=== PATIENT | male | born 1975 | race Caucasian/White ===

== ENCOUNTER 2020-04-01 18:09 | Emergency (ER) | payer BC, SELFPAY ==
[2020-04-01 18:19] VITALS: BP 131/68; PULSE 89; RESP 21; TEMP 37.8; O2SAT 97; BMI 34.0
--- NOTE | 2020-04-01 18:24 | DI.RAD.S_ITS ---
PROCEDURE: XR SHOULDER RT MIN 2V INDICATIONS: RIGHT Shoulder pain after fall TECHNIQUE: 3 views of the shoulder were acquired. COMPARISON: None. FINDINGS: Bones: No acute fractures or dislocations. No suspicious bony lesions. Visualized ribs appear intact. Soft tissues: No suspicious soft tissue calcifications. IMPRESSION: No acute osseous abnormality. If the symptoms persist with conservative management, consider cross sectional imaging such as CT or MRI for further assessment. Dictated by: Lenard Ramos M.D. on 04/01/2020 at 18:44 Approved by: Lenard Ramos M.D. on 04/01/2020 at 18:45
[2020-04-01] MEDS: ACETAMINOPHEN 325 MG TABLET 650 MG PO (19:25)
[2020-04-01] MEDS: IBUPROFEN 400 MG TABLET 800 MG PO (19:25)
[2020-04-01 19:43] VITALS: BP 132/81; PULSE 87; RESP 12; O2SAT 98
--- NOTE | 2020-04-01 21:58 | ED.UPPEXIN ---
HPI - Extremity Injury (Upper) <NOLA JainP - Last Filed: 04/01/20 22:16> General Chief Complaint: Extremity Injury, Upper Stated Complaint: RIGHT SHOULDER PAIN FALL LAST NIGHT Time Seen by Provider: 04/01/20 18:43 Source: patient Mode of arrival: Ambulatory Limitations: no limitations History of Present Illness HPI narrative: This is a 44-year-old male, smoker, has history of hypertension, diabetes presents to ED with chief complain of right anterior shoulder pain your AC joint. Patient reports he accidentally slipped and fell on right shoulder and /head last night. Patient reports he had some alcohol drinks before fall. He is a visitor from [place] and is planning return to home on 04/12/20. Patient denies losing consciousness, neck pain, vision change, headache, vomiting, or other head injury concerns. Patient reports only issue is in my shoulder and points to right shoulder. Patient reports limited range of motion on right arm with abduction, forward flexion, adduction due to pain and rates his pain as 7/10. Patient denies taking any medications after the injury for pain. Patient reports intact sensation distally and is able to move his fingers. Patient dominant right hand. Patient reports last tetanus immunization last than 5 years during foot surgery. Related Data Allergies Allergy/AdvReac Type Severity Reaction Status Date / Time No Known Drug Allergies Allergy Verified 04/01/20 18:19 Review of Systems <LEOPOLDO Jain - Last Filed: 04/01/20 22:16> Review of Systems Narrative: General: Denies fever, chills, fatigue, malaise, sweats. HEENT: Denies sinus pain, ear pain, sore throat, difficulty swallowing, dizziness. Respiratory: Denies dyspnea, cough, wheezing, hemoptysis, sputum. Cardiovascular: Denies chest pain, palpitations, orthopnea, edema. Gastrointestinal: Denies nausea, vomiting, abdominal pain, diarrhea, constipation, melena. : Denies dysuria, frequency, incontinence, hematuria, urinary retention. Musculoskeletal: See HPI Skin: Reports abrasion on right-sided forehead. Neurologic: Denies weakness, headache, numbness, change in speech, confusion, seizures, incoordination. Psychiatric: No concerning psychosocial issues. 12-point review of systems is negative except for those stated above. Patient History <LEOPOLDO Jain - Last Filed: 04/01/20 22:16> Medical History Anxiety (Acute) Depression (Acute) Diabetes (Acute) Hypertension (Acute) Social History Smoking Status: Current every day smoker Smoking Status: Current every day smoker tobacco type: cigarettes alcohol intake frequency: a few times a week Alcohol type: hard liquor Substance Use Type: does not use Exam <LEOPOLDO Jain - Last Filed: 04/01/20 22:16> Narrative Exam Narrative: General appearance: well developed, well nourished, in no acute distress. Head: normocephalic, no step-offs, non-tender. ENT: Hearing grossly intact. Airway patent. Neck/Thyroid: neck supple, full range of motion, no visible masses or meningeal signs. No JVD, non-tender without lymphadenopathy. Skin: Small superficial abrasions to right-sided forehead. No signs of infection. Heart: no clubbing, no cyanosis, no edema. Lungs: Breathing even and unlabored. No stridor. No accessory muscles used. Able to speak in full sentences. Chest: normal shape and expansion. Abdomen: non-obese, non-distended. Neurologic: alert and oriented. Cognitive exam, HYPERION ADMINISTRATOR and PNS grossly intact on informal exam. Psych: good eye contact, normal affect. Initial Vital Signs Initial Vital Signs: Vital Signs Temperature 100.1 F H 04/01/20 18:19 Pulse Rate 89 04/01/20 18:19 Respiratory Rate 21 04/01/20 18:19 Blood Pressure 131/68 04/01/20 18:19 Pulse Oximetry 97 04/01/20 18:19 Extrem Right upper extremity: normal to inspection, shoulder/upper arm Details: normal to inspection, tenderness Location: of the A-C joint and over the coracoid process and abnormal ROM Details: pain with active ROM, pain with passive ROM and with range as follows (<90 degree on abduction, limited adduction, <90 degree on forward flexion); no swelling, no abrasions, no lacerations, no ecchymosis, no crepitus, no deformity and no unusual warmth, elbow/forearm Details: normal to inspection; no tenderness and no swelling and wrist Details: normal ROM, normal vascular exam and radial pulse present; no tenderness, no swelling and no deformity <Fredy Story MD - Last Filed: 04/02/20 01:17> Initial Vital Signs Initial Vital Signs: Vital Signs Temperature 100.1 F H 04/01/20 18:19 Pulse Rate 89 04/01/20 18:19 Respiratory Rate 21 04/01/20 18:19 Blood Pressure 131/68 04/01/20 18:19 Pulse Oximetry 97 04/01/20 18:19 Procedures <LEOPOLDO Jain - Last Filed: 04/01/20 22:16> Orthopedic Splinting/Casting Injury #1: Side: right Upper Extremity Injury Location: shoulder Upper Extremity Immobilizer: sling/shoulder immobilizer Post splinting neuro exam: intact Post splinting vascular exam: intact Placed by: Nursing Scores <LEOPOLDO Jain - Last Filed: 04/01/20 22:16> GCS [place] coma scale eye opening: Spontaneous [place] coma scale verbal response: Orientated Shay coma scale motor response: Obey commands Shay coma scale total score: 15 Course <LEOPOLDO Jain - Last Filed: 04/01/20 22:16> Orders Ordered: ED Orders 04/01/20 18:24 XR shoulder RT min 2V Stat Discontinued Medications Acetaminophen (Tylenol) 650 mg PO NOW ONE Stop: 04/01/20 19:13 Last Admin: 04/01/20 19:25 Dose: 650 mg Documented by: DC Ibuprofen (Advil) 800 mg PO NOW ONE Stop: 04/01/20 19:13 Last Admin: 04/01/20 19:25 Dose: 800 mg Documented by: DC Vital Signs Vital signs: Vital Signs - 8 hr 04/01/20 18:19 04/01/20 19:43 Temperature 100.1 F H Pulse Rate 89 87 Respiratory Rate 21 12 Blood Pressure 131/68 132/81 Pulse Oximetry 97 98 <Fredy Story MD - Last Filed: 04/02/20 01:17> Orders Ordered: ED Orders 04/01/20 18:24 XR shoulder RT min 2V Stat Discontinued Medications Acetaminophen (Tylenol) 650 mg PO NOW ONE Stop: 04/01/20 19:13 Last Admin: 04/01/20 19:25 Dose: 650 mg Documented by: DC Ibuprofen (Advil) 800 mg PO NOW ONE Stop: 04/01/20 19:13 Last Admin: 04/01/20 19:25 Dose: 800 mg Documented by: DC Vital Signs Vital signs: Vital Signs - 8 hr 04/01/20 18:19 04/01/20 19:43 Temperature 100.1 F H Pulse Rate 89 87 Respiratory Rate 21 12 Blood Pressure 131/68 132/81 Pulse Oximetry 97 98 MDM - Extremity Injury (Upper) <Trae NOLA DiazP - Last Filed: 04/01/20 22:16> Differential Diagnosis Differential diagnosis: Likely dislocation of shoulder and other (Clavicle fracture, shoulder fracture, contusion, sprain/strain) Medical Records Attestation: I reviewed the patient's medical records. Imaging Data XR-Shoulder RT: Radiologist's Impression: [address] [address] XRay Report Signed Patient: Mis Alvarez#: [id number] : 1975Acct:[id number] Age/Sex: 44 / MDate of Service: 04/01/20 Loc: ED Accession Number: [id number] Procedure: XR shoulder RT min 2V Ordering Provider: Fredy Story MD PROCEDURE: XR SHOULDER RT MIN 2V INDICATIONS: RIGHT Shoulder pain after fall TECHNIQUE: 3 views of the shoulder were acquired. COMPARISON: None. FINDINGS: Bones: No acute fractures or dislocations. No suspicious bony lesions. Visualized ribs appear intact. Soft tissues: No suspicious soft tissue calcifications. IMPRESSION: No acute osseous abnormality. If the symptoms persist with conservative management, consider cross sectional imaging such as CT or MRI for further assessment. Dictated by: Lenard Ramos M.D. on 04/01/2020 at 18:44 Approved by: Lenard Ramos M.D. on 04/01/2020 at 18:45 [facility] Narrative Medical decision making narrative: This is a 44-year-old male who presents to ED with right anterior shoulder after he fell yesterday. Right dominant hand. Reports he hit his head but no concerns for head injury. Has superficial abrasions to right forehead. Patient has intact sensation and distal pulse and mobility to right hand. Patient had limited active and passive range of motion right arm due to pain in shoulder. X-ray test does not indicate acute findings such as fractures or dislocations. Patient was medicated with Tylenol and Motrin for pain and applied cool pack on affected shoulder. A sling was applied on affected arm due to comfort. Reminded patient to do gentle stretching several times a day on affected arm to prevent frozen shoulders. Advised to follow up with primary care physician when he returns to home foreign be evaluation and possible treatment with physical therapy and further imaging test if pain persists. Return precautions were discussed with patient and he verbalized understanding and agreement with treatment plan. Discharge Plan Departure Patient Disposition: Home Clinical Impression: Acute shoulder pain Qualifiers: Laterality: right Qualified Code(s): M25.511 - Pain in right shoulder Fall Qualifiers: Encounter type: initial encounter Qualified Code(s): W19.XXXA - Unspecified fall, initial encounter Discharge Date/Time: 04/01/20 19:50 Instructions: DI for Shoulder Pain Activity Restrictions/Additional Instructions: You have been diagnosed with [acute right shoulder pain, shoulder contusion from a fall. X-ray test does not show acute findings such as fractures or dislocation.]. What to do: *Take your medications as directed. Please use [id number] Tylenol and or Motrin as needed for discomfort. Tylenol 650-1000 mg up to 3 to 4 times a day as needed for pain. Ibuprofen 600-800 mg up to 3 times a day as needed for pain with food to decrease GI irritation. Please use sling on affected arm during acute pain. Please do gentle stretching several times a day while using a sling to prevent frozen shoulders. *Follow up with your primary care provider when you return to home in [place] for the re-evaluation. Let them know you were seen in the ED and that we asked you to be seen in follow up. You may require of a referral to physical therapist or orthopedist if pain persists. *Return to ED if you have any new, worsening, or concerning symptoms, such as [worsening pain, decreased sensation, weakness to affected arm, fever, chest pain, breathing difficulty, or any acute concerns]. <Fredy Story MD - Last Filed: 04/02/20 01:17> [facility] Cosamarilisature Attestation: I was immediately available in the department for consultation. This documentation has been reviewed and I agree with assessment and plan. Supervised by Fredy Story MD
== END 2020-04-01 19:50 | disposition home or self-care (01) ==
PROVIDERS: Emergency Provider Nurse Practitioner Family
DX: M25.511 Pain in right shoulder (principal); W19.XXXA Unspecified fall, initial encounter
CPT/HCPCS: 73030; 99283